=== PATIENT | female | born 1960 | race Caucasian/White ===

== ENCOUNTER 2016-12-18 06:42 | Day surgery (SDC) | payer BC ==
--- NOTE | ~2016-12-18 | EGD ---
EGD REPORT [facility] [address] [id number] NAME: JAMAICA BRICEÑO : 64 [place] [facility] [place] [id number] AGE: 56 ADM/REG DATE : 12/18/16 MR#: [id number] REPORT SERV DATE: 12/18/16 DICTATED BY: GILBERT JOYCE DATE: 12/18/16 REPORT STATUS : Draft TRANSCRIBED BY: [facility] DATE: 12/18/16 Endoscopy Center Patient Name: Jamaica Briceño Date of : 1960 Attending MD: GILBERT JOYCE MD Procedure Date No Time: 12/18/2016 Procedure: Colonoscopy Indications: Hematochezia, Constipation, Rectal pain, Last colonoscopy: November 2012 Referring MD: Dale Randolph Medicines: See the Anesthesia note for documentation of the administered medications Complications: No immediate complications. Procedure: Pre-Anesthesia Assessment: - ASA Grade Assessment: II - A patient with mild systemic disease. After I obtained informed consent, the scope was passed under direct vision. Throughout the procedure, the patient's blood pressure, pulse, and oxygen saturations were monitored continuously. The [id number] was introduced through the anus and advanced to the terminal ileum, with identification of the appendiceal orifice and IC valve. The colonoscopy was performed without difficulty. The patient tolerated the procedure well. The quality of the bowel preparation was adequate. Min fecal debris. Findings: The perianal and digital rectal examinations were normal. Internal hemorrhoids were found during retroflexion and were medium-sized. A sessile polyp was found in the proximal ascending colon. The polyp was 15 mm in size. The polyp was removed with a hot snare. Resection and retrieval were complete. Impression: - Internal hemorrhoids. - One 15 mm polyp in the proximal ascending colon. Resected and retrieved. Recommendation: - Patient has a contact number available for emergencies. The signs and symptoms of potential delayed complications were discussed with the patient. Return to normal activities tomorrow. Written discharge instructions were provided to the patient. - Regular diet. EGD REPORT [address] [address] NAME: JAMAICA BRICEÑO : 64 [place] [facility] [place] [id number] AGE: 56 ADM/REG DATE : 12/18/16 MR#: [id number] REPORT SERV DATE: 12/18/16 DICTATED BY: GILBERT JOYCE DATE: 12/18/16 REPORT STATUS : Draft TRANSCRIBED BY: [employer] DATE: 12/18/16 - Continue present medications. - Repeat colonoscopy for surveillance based on pathology results. - Return to my office in 6 weeks. - Sent in Rx for Linzess to your pharmacy Procedure Code(s): --- Professional --- 89228, Colonoscopy, flexible, proximal to splenic flexure; with removal of tumor(s), polyp(s), or other lesion(s) by snare technique Diagnosis Code(s): --- Professional --- K64.8, Other hemorrhoids D12.2, Benign neoplasm of ascending colon K92.1, Melena K59.00, Constipation, unspecified K62.89, Other specified diseases of anus and rectum CPT copyright 2013 [employer]. All rights reserved. The codes documented in this report are preliminary and upon physical damage appraiser review may be revised to meet current compliance requirements. Gilbert Joyce MD GILBERT JOYCE MD 12/18/2016 8:57 AM This report has been signed electronically. Number of Addenda: 0 Note Initiated On: 12/18/2016 8:31 AM Scope Withdrawal Time 0 hours 17 minutes 1 second [id number] [id number]
[~2016-12-18 06:42] MED LIST: ASA5GR PO; ASAB PO; AUG875 PO; BEN25 PO; BUM1 PO; LORTAB 5 PO; NORV25 PO; PERCOCET1 TA4 PO; STERIOD INJECTION; UNISOM25 MG OR; V5 PO; ZOFRAN4 PO; [UNRECOGNIZED DRUG - REMARK]
[2017-06-09] MEDS ORDERED: LINZESS 290 M290 MCG PO (15:57)
[2017-06-09] MEDS ORDERED: AMB5 PO (15:58)
[2017-06-09] MEDS ORDERED: ULTRAM50 PO (15:58)
[2017-06-09] MEDS ORDERED: NORCO1 TA1 PO (15:58)
== END 2016-12-18 23:59 | disposition home or self-care (01) ==
LOC: DMU 06:42
PROVIDERS: Internal Medicine Gastroenterology
PROC: 0DBK8ZX Excision of Ascending Colon, Via Natural or Artificial Opening Endoscopic, Diagnostic (ICD-10-PCS; principal; 2016-12-18 08:00)
DX: D12.2 Benign neoplasm of ascending colon (principal); K64.8 Other hemorrhoids; K92.1 Melena; K59.00 Constipation, unspecified; K62.89 Other specified diseases of anus and rectum; K21.9 Gastro-esophageal reflux disease without esophagitis; K44.9 Diaphragmatic hernia without obstruction or gangrene; Z88.8 Allergy status to other drugs, medicaments and biological substances; Z88.1 Allergy status to other antibiotic agents; Z79.82 Long term (current) use of aspirin; Z79.899 Other long term (current) drug therapy; Z90.89 Acquired absence of other organs; Z90.49 Acquired absence of other specified parts of digestive tract; Z98.51 Tubal ligation status; Z98.890 Other specified postprocedural states
CPT/HCPCS: 88305